=== PATIENT | male | born 1955 | race African-American/Black ===

== ENCOUNTER 2017-03-19 04:25 | Emergency (ER) | payer MEDICAID, MEDICARE, OTHER ==
[~2017-03-19] VITALS: Ht 165.1 cm; Wt 117.9 kg
[~2017-03-19 04:25] MED LIST: BP MEDICATION; ENAL20TA70 PO; FENOFIB PO; FURO20TA GT; GABA300C10 PO; HYDR25TA4 PO; INSULIN; LANTUS SUBCUT; METH500T6 PO
[2017-03-19 06:45] LABS: Basophils # (auto) 0 uL; Basophils % (auto) 0.4 % (0.0-2.0); Eosinophils # (auto) 0.1 uL; Eosinophils % (auto) 2.1 % (0.0-7.0); Hematocrit 37.6 % (41.0-53.0); Hemoglobin 12.5 g/dL (13.5-17.5); Lymphocytes # (auto) 1.1 uL; Lymphocytes % (auto) 16.3 % (10.0-50.0); Mean Corpuscular Hemoglobin 27.9 pg (28.0-32.0); Mean Corpuscular Hgb Conc. 33.4 g/dL (32.0-36.0); Mean Corpuscular Volume 83.6 fL (80.0-100.0); Monocytes # (auto) 0.4 uL; Monocytes % (auto) 5.5 % (0.0-12.0); Neutrophils # (auto) 5.1 uL; Neutrophils % (auto) 75.7 % (37.0-80.0); Nucleated Red Blood Cells % 0.1 %; Platelet Count (auto) 100 10^3/uL (140-450); Red Blood Cells 4.49 10^6/uL (4.5-5.90); Red Cell Distribution Width 14.9 % (11.8-14.3); White Blood Cell 6.8 10^3/uL (4.4-10.8)
[2017-03-19 07:03] LABS: Albumin 2.7 g/dL (3.4-5.0); Anion Gap 11 (5-15); Blood Urea Nitrogen 45 mg/dL (7-18); Calcium 8.4 mg/dL (8.5-10.1); Carbon Dioxide 21 mmol/L (21-32); Chloride 107 mmol/L (98-107); Magnesium 2.1 mg/dL (1.6-2.6); Potassium 4.9 mmol/L (3.5-5.1); Sodium 139 mmol/L (136-145)
[2017-03-19 07:07] LABS: Alanine Aminotransferase 24 U/L (16-61); Aspartate Aminotransferase 17 U/L (15-37); BUN/Creatinine Ratio 10.4; GFR African American 18 mL/min; GFR Non-African American 15 mL/min; Glucose 250 mg/dL (74-106)
[2017-03-19 07:11] LABS: Alkaline Phosphatase 123 U/L (45-117); Bilirubin, Total 0.5 mg/dL (0.2-1.0); Total Protein 6.4 g/dL (6.4-8.2)
[2017-03-19] MEDS ORDERED: ONDANSETRON HCL 4 MG/2 ML VIAL IV ONE (08:00)
[2017-03-19 08:55] LABS: Urine Bacteria NONE SEEN /hpf (None Seen); Urine Blood 1+ /uL (Negative); Urine Specific Gravity 1.013 (1.001-1.035); Urine Sperm PRESENT /hpf (None Seen); Urine WBC 2 /hpf (0 - 3)
[2017-03-19] MEDS ORDERED: SODIUM CHLORIDE 0.9% 1,000 ML IV ONE ×2 (09:58)
[2017-03-19 14:28] VITALS: BP 155/88
== END 2017-03-19 14:42 | disposition short-term general hospital (02) ==
LOC: EDBD 04:25 → ER 04:35
DX: R11.10 Vomiting, unspecified (principal); E11.9 Type 2 diabetes mellitus without complications; I10 Essential (primary) hypertension; Z86.73 Personal history of transient ischemic attack (TIA), and cerebral infarction without residual deficits; Z79.4 Long term (current) use of insulin; Z79.899 Other long term (current) drug therapy
CPT/HCPCS: 36415; 71045; 74176; 80053; 81001; 83735; 84484; 85025; 93005; 96361; 96374; 99285; J2405; J7030